=== PATIENT | male | born 1995 | race Caucasian/White ===

== ENCOUNTER 2016-09-26 20:38 | Emergency (ER) | payer OTHER ==
[~2016-09-26] VITALS: Ht 185.4 cm; Wt 122.5 kg
[2016-09-26 20:49] VITALS: BP 140/70
--- NOTE | 2016-09-26 21:03 | NUR ---
REPORTED TO [facility] DEPARTMENT AND SPOKEN TO [employer] ([phone]). TO CALL BACK .
--- NOTE | 2016-09-26 21:18 | NUR ---
[employer] CALLED BACK AND GAVE , FN# [phone] TO CONTACT [facility]ENN[facility].
--- NOTE | 2016-09-26 22:13 | NUR ---
TO ER BED 3
[2016-09-26 23:50] VITALS: BP 140/70
--- NOTE | 2016-09-26 23:50 | NUR ---
Patient discharged with v/s stable. Written and verbal after care instructions given and explained. Patient verbalized understanding. Ambulatory with steady gait. All questions addressed prior to discharge. Advised to follow up with PMD.
== END 2016-09-26 23:50 | disposition home or self-care (01) ==
LOC: MED 20:38
DX: S05.11XA Contusion of eyeball and orbital tissues, right eye, initial encounter (principal); S00.03XA Contusion of scalp, initial encounter; Y04.8XXA Assault by other bodily force, initial encounter; Y93.89 Activity, other specified; Y92.89 Other specified places as the place of occurrence of the external cause; Y99.8 Other external cause status
CPT/HCPCS: 70450; 70486; 99284